=== PATIENT | female | born 1970 | race Hispanic/Latino ===

== ENCOUNTER → 2018-11-08 | Outpatient (CLI) | payer OTHER | END | disposition home or self-care (01) | LOC: RAH 09:56 | PROVIDERS: ATTEND Family Medicine | DX: K76.0 Fatty (change of) liver, not elsewhere classified (principal); Z90.49 Acquired absence of other specified parts of digestive tract | CPT/HCPCS: 76700 ==

== ENCOUNTER 2021-07-22 19:58 | Emergency (ER) | payer OTHER ==
[~2021-07-22] VITALS: Ht 152.4 cm; Wt 68.0 kg
[2021-07-22 20:45] LABS: APPEARANCE,URINE Cloudy (CLEAR); BILIRUBIN,URINE Negative (NEGATIVE); COLOR,URINE Yellow (YELLOW); GLUCOSE, URINE (UA) Negative (NEGATIVE); KETONES,URINE 40 mg/dL (NEGATIVE); LEUKOCYTE ESTERASE ,URINE Moderate (NEGATIVE); NITRATE,URINE Negative (NEGATIVE); OCCULT BLOOD,URINE Moderate (NEGATIVE); PH,URINE 6.5 (5.0-8.0); PROTEIN,URINE Trace mg/dL (NEGATIVE)
[2021-07-22 20:53] LABS: BACTERIA,URINE Few /HPF (None Seen)
[2021-07-22] MEDS ORDERED: 0.9%NACL 1000ML 1,000 ML IV ONE (21:00)
[2021-07-22] MEDS ORDERED: MORPHINE 2 MG SYG IVP ONE (21:00)
[2021-07-22] MEDS ORDERED: PROMETHAZINE HCL 25 MG/ML 1ML AMPULE IM ONE (21:00)
[2021-07-22 21:23] LABS: BASOPHILS % (AUTO) 0.4 % (0.0-5.0); EOSINOPHILS % (AUTO) 1.1 % (0.0-8.0); HEMATOCRIT 40.5 % (36-48); LYMPHOCYTES % (AUTO) 9.1 % (21.0-51.0); MEAN CORPUSCULAR HEMOGLOBIN 29.6 pg (27.0-33.0); MEAN CORPUSCULAR HGB CONC 33.3 g/dL (32.0-36.0); MEAN CORPUSCULAR VOLUME 88.8 fL (79-99); MONOCYTES % (AUTO) 7.4 % (3.0-13.0); NEUTROPHILS % (AUTO) 81.4 % (40.0-77.0); PLATELET COUNT (AUTO) 224 K/uL (130-400); RED BLOOD CELL COUNT(AUTO) 4.56 MIL/uL (4.00-5.50); WHITE BLOOD COUNT (AUTO) 7.3 K/uL (4.8-10.8)
[2021-07-22] MEDS ORDERED: CEFTRIAXONE 1G VIAL IVP ONE (21:30)
[2021-07-22 21:38] LABS: CARBON DIOXIDE 23 mmol/L (21-32); CHLORIDE 101 mmol/L (101-111); CREATININE 0.7 mg/dL (0.5-1.5); GLOMERULAR FILTR. RATE CALC 93 mL/min (>60); GLUCOSE,RANDOM 169 mg/dL (70-105); POTASSIUM 3.5 mmol/L (3.5-5.1); SODIUM SERUM 139 mmol/L (136-145); UREA NITROGEN, BLOOD 15 mg/dL (7-18)
[2021-07-22 21:45] LABS: ALANINE AMINOTRANSFERASE 47 U/L (12-78); ALBUMIN 4.2 g/dL (3.5-5.0); ASPARTATE AMINOTRANSFERASE 27 U/L (10-37); BILIRUBIN,TOTAL 0.5 mg/dL (0.2-1.0); CRP QUANTITATIVE < 2.00 mg/L (0.00-9.0); LIPASE 53 U/L (114-286); TOTAL PROTEIN, SERUM 8.9 g/dL (6.0-8.3)
[2021-07-22] MEDS ORDERED: CEPH500B PO (22:44)
[2021-07-22] MEDS ORDERED: ONDA4TAB10 PO (22:44)
[2021-07-22] MEDS ORDERED: DICY20TA2 PO (22:44)
[2021-07-22 23:02] VITALS: BP 124/70
== END 2021-07-22 23:03 | disposition home or self-care (01) ==
LOC: EDH 19:58
DX: N39.0 Urinary tract infection, site not specified (principal); K57.30 Diverticulosis of large intestine without perforation or abscess without bleeding; Q63.1 Lobulated, fused and horseshoe kidney; R10.84 Generalized abdominal pain; R11.2 Nausea with vomiting, unspecified; E78.00 Pure hypercholesterolemia, unspecified; Z79.899 Other long term (current) drug therapy
CPT/HCPCS: 36415; 74176; 80053; 81001; 83690; 84484; 85025; 86140; 87088; 96372; 96374; 96375; 99285; J0696; J2550; J7030

== ENCOUNTER 2022-04-14 15:26 | Emergency (ER) | payer OTHER ==
[~2022-04-14] VITALS: Ht 160 cm; Wt 65.8 kg
[~2022-04-14 15:26] MED LIST: CEPH500B PO; DICY20TA2 PO; ONDA4TAB10 PO
[2022-04-14 15:29] VITALS: BP 118/81
[2022-04-14] MEDS ORDERED: ACETAMINOPHEN 500 MG TABLET ONE (15:59)
[2022-04-14] MEDS ORDERED: ACETAMINOPHEN 500 MG TABLET PO ONE (16:00)
[2022-04-14] MEDS ORDERED: OSEL75 PO (16:52)
== END 2022-04-14 17:12 | disposition home or self-care (01) ==
LOC: EDH 15:26
DX: J10.1 Influenza due to other identified influenza virus with other respiratory manifestations (principal); E78.00 Pure hypercholesterolemia, unspecified
CPT/HCPCS: 87804

== ENCOUNTER 2024-04-06 12:18 | Emergency (ER) | payer BC, OTHER ==
[~2024-04-06] VITALS: Ht 152.4 cm; Wt 69.9 kg
[~2024-04-06 12:18] MED LIST changes: +ONDA-243 PO; -ONDA4TAB10 PO; +OSEL75 PO
[2024-04-06 14:01] LABS: BASOPHILS # (AUTO) 0.03 K/uL (0.00-0.20); BASOPHILS % (AUTO) 0.2 % (0.0-5.0); EOSINOPHILS # (AUTO) 0.14 K/uL (0.00-0.70); EOSINOPHILS % (AUTO) 0.9 % (0.0-8.0); HEMATOCRIT 38.8 % (36-48); IMMATURE GRANULOCYTE ABSOLUTE 0.05 K/uL (0-1); LYMPHOCYTES # (AUTO) 1.6 K/uL (1.0-4.8); LYMPHOCYTES % (AUTO) 10.5 % (21.0-51.0); MEAN CORPUSCULAR HEMOGLOBIN 28.8 pg (27.0-33.0); MEAN CORPUSCULAR HGB CONC 32.5 g/dL (32.0-36.0); MEAN CORPUSCULAR VOLUME 88.6 fL (79-99); MONOCYTES # (AUTO) 0.8 K/uL (0.1-1.0); MONOCYTES % (AUTO) 5.2 % (3.0-13.0); NEUTROPHILS # (AUTO) 12.6 K/uL (1.8-7.7); NEUTROPHILS % (AUTO) 82.9 % (40.0-77.0); PLATELET COUNT (AUTO) 263 K/uL (130-400); RED BLOOD CELL COUNT(AUTO) 4.38 MIL/uL (4.00-5.50); RED CELL DISTRIBUTION WIDTH 13.1 % (11.0-15.5); WHITE BLOOD COUNT (AUTO) 15.2 K/uL (4.8-10.8)
[2024-04-06] MEDS: ondanSETRON 4MG INJ IVP ONE (14:03)
[2024-04-06] MEDS: 0.9%NACL 1000ML 1,000 ML IV ONE (14:04)
[2024-04-06 14:09] LABS: CREATININE 0.8 mg/dL (0.5-1.0)
[2024-04-06 14:31] LABS: INFLUENZA TYPE A Negative For Type A (NEGATIVE); INFLUENZA TYPE B Negative For Type B (NEGATIVE)
[2024-04-06] MEDS ORDERED: ONDA-104 PO (14:47)
[2024-04-06] MEDS ORDERED: AMOX1TAB16 PO (14:47)
[2024-04-06 14:48] VITALS: BP 150/89; PULSE 68; RESP 18; TEMP 98.1; O2SAT 98
== END 2024-04-06 15:04 | disposition home or self-care (01) ==
LOC: EDH 12:18
DX: K52.9 Noninfective gastroenteritis and colitis, unspecified (principal); E78.00 Pure hypercholesterolemia, unspecified; E03.9 Hypothyroidism, unspecified; Z90.49 Acquired absence of other specified parts of digestive tract
CPT/HCPCS: 99284; 96374; 96361; 80048; 85025; 87804 ×2; 36415; J7030; J2405

== ENCOUNTER 2025-07-07 07:52 | Emergency (ER) | payer BC, OTHER ==
[~2025-07-07] VITALS: Ht 152.4 cm; Wt 72.6 kg
[~2025-07-07 07:52] MED LIST changes: +AMOX1TAB16 PO; +ONDA-104 PO
--- NOTE | 2025-07-07 08:09 | ERN ---
General Chief Complaint: Headache Stated Complaint: HEADACHE Time Seen by MD: 07:58 Source: patient History of Present Illness Initial Comments The patient is a 54-year-old female who came to the ER with complain of nausea and severe headache along with back pain that started yesterday evening. As per the patient, since the evening the headache worsened with the nausea. The p atient had a similar attack many years ago. Timing/Duration: 24 hours Severity: moderate Allergies: Coded Allergies: No Known Drug Allergies (Unverified Allergy, Unknown, 07/22/21) Home Meds Active Scripts Ondansetron HCl (Ondansetron HCl) 4 Mg Tablet, 4 MG PO TID, #15 TAB Prov:LÓPEZ GONSALVES 04/06/24 Amoxicillin/Potassium Clav (Amox Tr-K Clv 875-125 mg Tab) 875 Mg-125 Mg Tablet, 1 EACH PO BID for 7 Days, #14 TAB 0 Refills Prov:LÓPEZ GONSALVES 04/06/24 Oseltamivir Phosphate (Tamiflu) 75 Mg Cap, 75 MG PO BID for 5 Days, #10 CAP Prov:KULDIP BOOTH NP 04/14/22 Dicyclomine HCl (Bentyl) 20 Mg Tab, 20 MG PO QIDP, #28 TAB Prov:ADITYA DYER 07/22/21 Ondansetron (Ondansetron Odt) 4 Mg Tab.rapdis, 4 MG PO QIDP, #28 TAB Prov:ADITYA DYER 07/22/21 Cephalexin Monohydrate (Keflex) 500 Mg Cap, 500 MG PO TID for 7 Days, #21 CAP Prov:ADITYA DYER 07/22/21 Past Medical History Past Medical History: GERD, High Cholesterol, Hypertension, Hypothyroid, Migraines Past Surgical History: Cholecystectomy, Social History Social History: Lives with family Gastrointestinal/Abdominal: (+) nausea Neuro: (+) headache Physical Exam General Appearance: (+) apparent distress Orientation: (+) alert, (+) oriented x 3 Head/Face Trauma: No Ear, Nose, Throat: (-) hearing grossly normal, (-) normal ENT inspection, (-) moist mucous membraine, (-) normal pharynx, (-) normal TM, (-) abnormal TM, (-) pharyngeal erythema, (-) sinus drainange, (-) sinus pain, (-) tonsillar exudate, (-) tonsillar swelling, (-) nasal drip, (-) nasal congestion, (-) hearing decreased, (-) dry mucous membraine, (-) other documentation Neck: (-) normal inspection, (-) supple, (-) full range of motion, (-) no JVD, (-) non-tender, (-) no bruit, (-) tender, (-) limited range of motion, (-) t tom lateral, (-) tender midline, (-) thyromegaly, (-) lymphadenopathy, (-) masses, (-) carotid bruit, (-) other documentaion Respiratory: (-) chest non-tender, (-) lungs clear, (-) well ventilated, (-) decreased breath sounds, (-) retractions, (-) abnormal breath sound, (-) crackles, (-) plerual rub, (-) rales, (-) rhonchi, (-) stridor, (-) wheezing, (- ) other documentation Heart: (-) regular, (-) no gallop, (-) murmur, (-) irregular, (-) bradycardia, (-) tachycardia, (-) systolic murmur, (-) diastolic murmur, (-) extra beats, (-) friction rub, (-) gallop/S3, (-) gallop/S4, (-) other documentation Vascular: (-) no edema, (-) normal peripheral pulse, (-) no JVD, (-) abdominal aorta, (-) abnormal peripheral pulse, (-) carotid bruit, (-) edema, (-) JVD, (-) varicose vein, (-) other documentation Gastrointestinal: (-) soft, (-) non-tender, (-) no organomegaly, (-) bowel sound present, (-) distended, (-) tender, (-) abnormal bowel sounds, (-) bowel sound absent, (-) rebound, (-) iglesias's sign, (-) guarding, (-) hernia, (-) mass, (-) pulsatile mass, (-) CVA tenderness, (-) hepatomegaly, (-) spleenomegaly, (-) other documentation, (-) McBerney's, (-) other documentation Extremities: (-) normal range of motion, (-) non-tender, (-) normal inspection, (-) no pedal edema, (-) no calf tenderness, (-) normal capillary refill, (-) pelvis stable, (-) calf tenderness, (-) inflammation, (-) pedal edema, (-) slow capillary refill, (-) swelling, (-) other Neurologic/Psychiatric: (-) normal speech, (-) no motor defecits, (-) no sensory deficits, (-) director of environmental services II-XII nml as tested, (-) normal gait, (-) normal mood/affect, (-) abnormal cerebellar tests, (-) abnormal gait, (-) aphasia, (-) facial droop, (-) other documentation Results Laboratory and Microbiology Lab and Micro Result Laboratory Tests Test 07/07/25 08:27 White Blood Count 9.3 K/uL (4.8-10.8) Red Blood Count 4.57 MIL/uL (4.00-5.50) Hemoglobin 13.6 g/dL (12.0-16.0) Hematocrit 40.1 % (36-48) Mean Corpuscular Volume 87.7 fL (79-99) Mean Corpuscular Hemoglobin 29.8 pg (27.0-33.0) Mean Corpuscular Hemoglobin Concent 33.9 g/dL (32.0-36.0) Red Cell Distribution Width 12.9 % (11.0-15.5) Platelet Count 269 K/uL (130-400) Mean Platelet Volume 10.1 fL (7.5-10.5) Immature Granulocyte % (Auto) 0.5 % (0-1) Neutrophils (%) (Auto) 88.8 % (40.0-77.0) H Lymphocytes (%) (Auto) 4.6 % (21.0-51.0) L Monocytes (%) (Auto) 5.7 % (3.0-13.0) Eosinophils (%) (Auto) 0.1 % (0.0-8.0) Basophils (%) (Auto) 0.3 % (0.0-5.0) Neutrophils # (Auto) 8.3 K/uL (1.8-7.7) H Lymphocytes # (Auto) 0.4 K/uL (1.0-4.8) L Monocytes # (Auto) 0.5 K/uL (0.1-1.0) Eosinophils # (Auto) 0.01 K/uL (0.00-0.70) Basophils # (Auto) 0.03 K/uL (0.00-0.20) Absolute Immature Granulocyte (auto 0.05 K/uL (0-1) Nucleated Red Blood Cells 0.0 % (0.0-0.19) Sodium Level 131 mmol/L (136-145) L Potassium Level 4.0 mmol/L (3.5-5.1) Chloride Level 100 mmol/L (101-111) L Carbon Dioxide Level 23 mmol/L (21-32) Blood Urea Nitrogen 11 mg/dL (7-18) Creatinine 0.8 mg/dL (0.5-1.0) Glomerular Filtration Rate Calc 86 mL/min (>90) Random Glucose 154 mg/dL (70-105) H Total Calcium 8.7 mg/dL (8.5-10.1) Troponin I High Sensitivity < 4 ng/L (4-50) L MDM MDM: Differential diagnosis: Rationale: Tests considered and ordered secondary to shared decision making include: Previous outside records reviewed: Old ER visits. Risk of complication and/or morbidity or mortality of patient management: None Medications-Per medication reconciliation Need for hospitalization: Patient does not meet criteria for hospitalization. Need for emergency major/minor surgery: No There are no social concerns with this patient. Prescription drug management Prescriptions will include symptomatic care Patient's prior external medical records from other ER visits were reviewed by me as indicated. Prior testing and results from previous visits were reviewed. Prior tests were taken into account with medical decision making and resource utilization, independent historian/historians were used to obtain complete medical history. I independently interpreted the test that were performed, results were reviewed by me and considered findings on radiology if ordered. Medical management and examination interpretation discussions were had by me with other qualified healthcare professionals as indicated for the patient's care. ED Course Orders Procedure Category Date Status Time 12 Lead Ekg Tracing- EKG 07/07/25 Logged Technical 08:09 Cbc With Differential LAB 07/07/25 In Process 08:09 Basic Metabolic Panel LAB 07/07/25 Complete 08:09 Covid Rna Naat LAB 07/07/25 In Process 08:09 Influenza Type A & B, LAB 07/07/25 In Process Rapid 08:09 Troponin I High LAB 07/07/25 Complete Sensitivity 08:09 Ct Head/Brain W/O CT 07/07/25 Resulted Contrast 08:09 Morphine 2mg Syg PHA 07/07/25 Complete (Morphine 2mg Syg) 08:30 Ketorolac PHA 07/07/25 Complete Tromethamine 30mg/Ml 08:30 Ondansetron 4mg Inj PHA 07/07/25 Complete (Zofran 4mg Inj) 08:30 Baclofen (Baclofen) PHA 07/07/25 Complete 08:30 Current Medications Medications (Trade) Dose Ordered Sig/[place] Route PRN Reason Start Time Stop Time Status Last Admin Dose Admin Baclofen (Baclofen) 10 mg ONCE ONCE PO 07/07/25 08:30 07/07/25 08:31 DC 07/07/25 09:10 Ketorolac Tromethamine (toRADol) 30 mg ONCE ONCE IVP 07/07/25 08:30 07/07/25 08:31 DC 07/07/25 09:10 Morphine Sulfate (morPHINE 2MG SYG) 2 mg ONCE ONCE IVP 07/07/25 08:30 07/07/25 08:31 DC 07/07/25 09:10 Ondansetron HCl (zoFRAN 4MG INJ) 4 mg ONCE ONCE IVP 07/07/25 08:30 07/07/25 08:31 DC 07/07/25 09:10 Vital Signs Date Time Temp Pulse Resp B/P (MAP) Pulse Ox O2 Delivery O2 Flow Rate FiO2 07/07/25 07:53 98.4 78 20 132/91 99 0 DX & DISP Disposition: Discharge Departure Impression: Primary Impression: Headache Condition: Stable Scripts Ketorolac Tromethamine (Toradol) 10 Mg Tab 10 MG PO BID for pain for 5 Days, #10 TAB 0 Refills Prov: JOANN PHOENIX MD 07/07/25 Referrals: LAITH GAMEZ MD (PCP) REINIER VIEIRA MD Jul 07, 2025 08:09 JOANN PHOENIX MD Jul 07, 2025 09:32
[2025-07-07 08:36] LABS: IMMATURE GRANULOCYTE ABSOLUTE 0.05 K/uL (0-1); NUCLEATED RED BLOOD CELLS 0.0 % (0.0-0.19); PLATELET COUNT (AUTO) 269 K/uL (130-400); RED BLOOD CELL COUNT(AUTO) 4.57 MIL/uL (4.00-5.50); RED CELL DISTRIBUTION WIDTH 12.9 % (11.0-15.5); WHITE BLOOD COUNT (AUTO) 9.3 K/uL (4.8-10.8)
[2025-07-07 08:47] LABS: CREATININE 0.8 mg/dL (0.5-1.0); GLOMERULAR FILTR. RATE CALC 86.0 mL/min (>90); GLUCOSE,RANDOM 154.0 mg/dL (70-105); SODIUM SERUM 131.0 mmol/L (136-145); UREA NITROGEN, BLOOD 11.0 mg/dL (7-18)
[2025-07-07] MEDS: BACLOFEN 10 MG TABLET PO ONE (09:10)
--- NOTE | 2025-07-07 09:23 | HMCIMG ---
EXAM: CT Head Without IV contrast. CLINICAL HISTORY: Headache TECHNIQUE: Axial computed tomography images of the head/brain without intravenous contrast. COMPARISON: None provided. FINDINGS: BRAIN: No evidence of acute hemorrhage. No mass lesion. No CT evidence for acute territorial infarct. No midline shift or extra-axial collections. VENTRICLES: No hydrocephalus. ORBITS: The orbits are unremarkable. SINUSES AND MASTOIDS: The paranasal sinuses and mastoid air cells are clear. BONES: No fracture. SOFT TISSUES: Unremarkable. IMPRESSION: No acute intracranial abnormality. /[place]
[2025-07-07] MEDS ORDERED: KETO10 PO (09:31)
[2025-07-07 09:41] LABS: SARS-CoV-2, RNA, NAAT POSITIVE SARS CoV-2 (NEGATIVE)
[2025-07-07] MEDS ORDERED: AZIT250T9 PO (09:42)
[2025-07-07 10:02] LABS: INFLUENZA TYPE A Negative For Type A (NEGATIVE); INFLUENZA TYPE B Negative For Type B (NEGATIVE)
--- NOTE | 2025-07-07 10:09 | EKG ---
[facility] Test Date: 2025-07-07 Test Time: 08:57:56 Pat Name: LIANNA BESS Department: ED Room: Gender: F Exit Booth Agent: [id number] Requested By: JOANN PHOENIX Order Number: [id number] Reading MD: Jamin Cornell Measurements Intervals [place] Rate: 70 P: 52 VA: 166 QRS: 43 QRSD: 83 T: 35 QT: 402 QTc: 434 Interpretive Statements Sinus rhythm No previous ECG available for comparison Electronically Signed On 07-07-2025 21:10:08 [employer] by Jamin Cornell Please click the below link to view image of tracing.
[2025-07-07 10:33] VITALS: BP 114/73; PULSE 59; RESP 18; TEMP 98.6; O2SAT 98
--- NOTE | 2025-07-07 10:34 | NUR ---
PATIENT RECEIVED HER DISCHARGE PAPERWORK, EXCUSE AND PRESCRIPTIONS. SHE FEELS MUCH BETTER, HER HEADACHE 0/10. SHE AMBULATED TO DISCHARGE WITH A STEADY GAIT,ACCOMPANIED BY HER .
== END 2025-07-07 10:36 | disposition home or self-care (01) ==
LOC: EDH 07:52
DX: U07.1 COVID-19 (principal); R51.9 Headache, unspecified; R11.0 Nausea; E03.9 Hypothyroidism, unspecified; E78.00 Pure hypercholesterolemia, unspecified; I10 Essential (primary) hypertension; Z90.49 Acquired absence of other specified parts of digestive tract
CPT/HCPCS: 99285; 96374; 70450; 96375; 87635; 84484; 80048; 85025; 87804 ×2; 36415; 93005; J1885; J2270; J2405